=== PATIENT | male | born 1955 | race Caucasian/White ===

== ENCOUNTER 2023-11-13 06:08 | Outpatient (RCR) | payer MEDICARE, OTHER, SELFPAY | END 2023-11-13 23:59 | disposition home or self-care (01) | LOC: RPT 06:08 | PROVIDERS: ATTENDING PHYSICIAN Physical Medicine & Rehabilitation Sports Medicine; FAMILY PHYSICIAN Family Medicine | DX: M17.0 Bilateral primary osteoarthritis of knee (principal); M25.561 Pain in right knee; M25.562 Pain in left knee; Z73.6 Limitation of activities due to disability; G62.9 Polyneuropathy, unspecified | CPT/HCPCS: 97010; 97110; 97162 ==

== ENCOUNTER → 2023-12-09 07:34 | Outpatient (REF) | payer MEDICARE, OTHER, SELFPAY | LOC: DHCBC/DCA 07:34 | PROVIDERS: ATTENDING PHYSICIAN Internal Medicine Cardiovascular Disease; FAMILY PHYSICIAN Family Medicine | DX: R07.89 Other chest pain (principal) | CPT/HCPCS: 78452; 93017; A9500; J2785 ==

== ENCOUNTER 2023-12-11 07:56 | Outpatient (RCR) | payer MEDICARE, OTHER, SELFPAY | END 2023-12-14 09:25 | disposition home or self-care (01) | LOC: RPT 07:56 | PROVIDERS: ATTENDING PHYSICIAN Physical Medicine & Rehabilitation Sports Medicine; FAMILY PHYSICIAN Family Medicine | DX: M17.9 Osteoarthritis of knee, unspecified (principal); M25.561 Pain in right knee; M25.562 Pain in left knee; Z73.6 Limitation of activities due to disability; G62.9 Polyneuropathy, unspecified; M62.81 Muscle weakness (generalized) | CPT/HCPCS: 97110; 97530 ==

== ENCOUNTER 2024-03-28 18:01 | Emergency (ER) | payer MEDICARE, OTHER, SELFPAY ==
[2024-03-28 18:03] VITALS: BP 191/89
[2024-03-28 19:40] VITALS: BP 187/80
[2024-03-28] MEDS: ADACEL 0.5 ML IM (20:41)
--- NOTE | 2024-03-28 21:04 | ED.GENMED ---
History of Present Illness
General
Chief Complaint: Skin Problem
Source: patient
Exam Limitations: none
Time Seen by Provider: 03/28/24 19:49
Nursing documentation reviewed up to this point in time: agreed with
History of Present Illness
History of Present Illness:
68-year-old male with past medical history of paroxysmal A-fib denies being on any blood thinners currently, hyperlipidemia presenting to the emergency department after being caught by the clean edge of a toilet on his right lateral calf region.
Denies any foreign bodies denies any numbness or weakness or additional concerns.
Past History
Past History
ED Past Medical History: Arrthythmia (Atrial fibrillation), HTN and Hypercholesterolemia
ED Past Surgical History: Orthopedic
Social History
Tobacco: Non-smoker
Alcohol: Occasional
Personal:
Living: with family
Employment: Employed (Self-employed)
Family History
Family History: Other (Noncontributory)
Review of Systems
Review of Systems
Allergies reviewed?: Yes
All Other Systems: ROS reviewed and negative except as documented in HPI and ROS
Phy Exam
Physical Exam
Physical Exam:
GENERAL: Alert , in no apparent distress
EYE: pupils equal and reactive
NECK: Supple, no significant adenopathy.
ENT: o/p clr, mmm.
CARDIAC: Regular rate and rhythm .
LUNGS: Clear breath sounds bilaterally, no acute respiratory distress, no wheezes/rales/rhonchi
ABDOMEN: Soft, without focal tenderness, no r/g, no cvat
NEUROLOGICAL: Alert and oriented, no focal neuro deficits
SKIN: 5 cm laceration subcutaneous in depth to the right lateral mid calf region no foreign body seen warm and dry, skin intact.
MUSCULOSKELETAL: No edema, well perfused.
PSYCH: Normal and appropriate interaction.
Course
Orders/Labs/Results
Orders:
Orders
03/28/24 20:40
Tetanus/Diphth/Acelpertussis [Adacel] 0.5 ml .ROUTE .STK-MED ONE
03/28/24 20:41
Tetanus/Diphth/Acelpertussis [Adacel] 0.5 ml IM .ONCE ONE
Vital Signs
Initial and Last Documented VS:
Initial Vital Signs
Temp Pulse Resp BP Pulse Ox
98.3 F 89 18 191/89 96
03/28/24 18:03 03/28/24 18:03 03/28/24 18:03 03/28/24 18:03 03/28/24 18:03
Last Documented Vital Signs
Temp Pulse Resp BP Pulse Ox
98.3 F 85 18 187/80 98
03/28/24 18:03 03/28/24 19:40 03/28/24 19:40 03/28/24 19:40 03/28/24 19:40
Procedures
Laceration Closure
Right Middle Lateral Calf:
Status of Wound: clean
Size of Wound in cm: 5
Description of Wound Edges: sharp
Preparation: cleaned with saline
Anesthesia: 1% Lidocaine with epi
Revision/Debridement: routine- no revision and irrigate-direct pressure
Wound exploration: explored to base- no FB and no tendon involvement
Type of Closure: single layer closure
Skin Closure Material: 3-0 nylon
Number of sutures: 6
MDM/Problems Addressed
MDM/Problems Addressed:
68-year-old male presenting to the emergency department today with concerns of right-sided calf laceration occurring from a toilet prior to arrival. He claims that the toe was very clean it was not the use portion of the toilet it was a portion
that is otherwise clean and not near any feces or bodily fluids. Denies any numbness weakness or additional concerns this was subcutaneous in depth. This was closed with 6 stitches tolerated well. Advised for removal in 12 to 14 days. Blood
pressure was also elevated he was advised to follow-up for this as well. No symptoms of hypertensive emergency.
*Critical Care Note
Total Time (30-74mins, 75-104mins- exclusive of procedures): Not Applicable
ED Attending Note
-
Portions of this chart may have been created with voice recognition software.� Occasional wrong word or��sound alike� substitutions may have occurred due to the inherent limitations of voice recognition software.
Discharge Plan
Departure
Patient Disposition: Home (Routine Discharge)
Date of Disposition: 03/28/24
Time of Disposition: 21:07
Patient with high blood pressure during this ER visit?: Yes
Condition: Good
Covid-19: Not Applicable
Discharge Problem:
Laceration of leg
Instructions: Laceration Repair With Stitches ED, BLOOD PRESSURE
Prescriptions:
No Action
metoprolol succinate 50 mg Tablet Extended Release 24 Hr
50 mg PO HS
simvastatin 10 mg Tablet
10 mg PO HS
Eliquis 5 mg Tablet
5 mg PO BID
Referrals:
UNKNOWN - PT DOES,NOT KNOW [Family Provider] -
Activity Restrictions/Additional Instructions:
You came to the emergency department today with concerns of a laceration to your leg. This was cleaned thoroughly and closed with 6 stitches. Please have these removed in 12 to 14 days. In the meantime please keep the area clean and covered. You
did have an elevated blood pressure here. Please follow-up closely for reassessment of your blood pressure in the next week or 2. Return for any worsening, new or concerning symptoms.
Interventions
Interventions:
*Risk Screen - Suicide Last Done: 03/28/24 18:03
*General Assessment Last Done: 03/28/24 18:03
*Neglect/Abuse Screening Last Done: 03/28/24 18:03
ED-Skin Assessment Last Done: 03/28/24 19:39
Discharge Date and Time
Print Language: AUSTRAL[place]
[2024-03-28 21:15] VITALS: BP 167/75
== END 2024-03-28 21:16 | disposition home or self-care (01) ==
LOC: EMR 18:01
PROVIDERS: EMERGENCY PHYSICIAN Emergency Medicine
DX: S81.811A Laceration without foreign body, right lower leg, initial encounter (principal); W22.8XXA Striking against or struck by other objects, initial encounter; Z23 Encounter for immunization; I48.0 Paroxysmal atrial fibrillation; E78.00 Pure hypercholesterolemia, unspecified; I10 Essential (primary) hypertension
CPT/HCPCS: 99282; 12002; 90471; 90715

== ENCOUNTER 2024-06-19 09:31 | Emergency (ER) | payer MEDICARE, OTHER, SELFPAY ==
[2024-06-19 09:51] VITALS: BP 180/88
[2024-06-19 10:22] LABS: % Basophils 0.7 % (0-2); % Eosinophils 0.7 % (0-6); % Immature Granulocytes 0.4 % (0-0.5); % Lymphocytes 12.8 % (20.5-51.1); % Monocytes 13.9 % (1.7-9.3); % Neutrophils 71.5 % (42.2-75.2); Absolute Basophils 0.1 10^3/uL (0-0.2); Absolute Eosinophils 0.1 10^3/uL (0-0.7); Absolute Lymphocytes 1.3 10^3/uL (1.2-3.4); Absolute Monocytes 1.4 10^3/uL (0.1-0.6); Hematocrit 47.5 % (39.0-52.0); Hemoglobin 16.6 g/dL (13.0-18.0); Mean Corp Hgb Conc. 34.9 g/dL (33.0-37.0); Mean Corpuscular Hgb 30.2 pg (27.0-31.0); Mean Corpuscular Volume 86.4 fL (80.0-94.0); Mean Platelet Volume 11.3 fL (7.4-10.4); Nucleated Red Blood Cells % 0 % (-); Platelet Count 180 10^3/uL (130-400); Red Cell Dist. Width 12.4 % (11.5-14.5); White Blood Cell Count 9.8 10^3/uL (4.8-10.8)
[2024-06-19 10:24] LABS: Lactic Acid 1.6 mmol/L (0.7-2.0)
[2024-06-19 10:25] LABS: ALT (SGPT) 22 U/L (0-50); AST (SGOT) 23 U/L (17-59); Albumin 4.4 g/dl (3.5-5.0); Alkaline Phosphatase 83 U/L (38-126); Blood Urea Nitrogen 17 mg/dl (9-20); Calcium 9.4 mg/dl (8.4-10.2); Carbon Dioxide 26 mmol/L (22-30); Chloride 104 mmol/L (98-107); Glucose 113 mg/dl (70-99); Potassium 4.3 mmol/L (3.5-5.1); Sodium 140 mmol/L (135-145); Total Bilirubin 1.7 mg/dl (0.2-1.3); Total Protein 7.2 g/dl (6.3-8.2); eGFR > 60.00
[2024-06-19 11:52] LABS: Erythrocyte Sed Rate 9 mm/hour (0-20)
--- NOTE | 2024-06-19 12:08 | ED.MUSCINJ ---
HPI-Injury
<ERAN Luna Last Filed: 06/19/24 15:22>
General
Chief Complaint: Musculo-Skeletal Complaint
Source: patient
Exam Limitations: none
Time Seen by Provider: 06/19/24 11:01
History of Present Illness-Injury
Initial Injury comments:
68-year-old male not anticoagulated presents with 3 to 4 days worth of worsening pain and swelling to the right knee. No recent injury. He denies a fever. He has a remote history of Lyme disease and he has a remote history of surgery to the right
knee. The surgery was done in the 70s for torn ligament and meniscus. He has been dealing with occasional discomfort to the knee. No fevers or chills. No rashes or tick bites. No other complaints
Past History
<ERAN Luna Last Filed: 06/19/24 15:22>
Past History
ED Past Medical History: Arrthythmia (Atrial fibrillation), HTN and Hypercholesterolemia
ED Past Surgical History: Orthopedic
Social History
Tobacco: Non-smoker
Alcohol: Occasional
Personal:
Living: with family
Employment: Employed (Self-employed)
Family History
Family History: Other (Noncontributory)
Phy Exam
<ERAN Luna Last Filed: 06/19/24 15:22>
Physical Exam
Physical Exam:
General: Well-appearing male no acute respiratory distress
HEENT: Normocephalic
Musculoskeletal exam: Right knee warm to the touch slightly erythematous range of motion is limited from near full extension to about 20 degrees of flexion. He is tender diffusely about the knee multiple healed surgical incisions over the knee
there is an effusion. He is able to straight leg raise
Sepsis
<ERAN Luna Last Filed: 06/19/24 15:22>
Sepsis Screening
Sepsis Assessment: Sepsis Ruled Out
Sepsis Screen
Sepsis Screen: Sepsis Ruled Out
Date: 06/19/24
Time: 15:22
<Mariella Israel MD - Last Filed: 06/19/24 16:58>
Sepsis Screen
Sepsis Screen: Sepsis Ruled Out
Date: 06/19/24
Time: 16:54
Injury Course
<Genaro Banks PA-C - Last Filed: 06/19/24 15:22>
Orders/Labs/Results
Orders:
Orders
06/19/24 09:55
Knee, Right 4 or More Views [CR Knee- Right 4 Or More View*] Urgent
Comment:
Reason For Exam: pain and swelling
06/19/24 10:04
C-Reactive Protein Urgent
Comment: ADD ON
Complete Blood Count/With Diff Urgent
Comprehensive Metabolic Panel Urgent
Erythrocyte Sed Rate Urgent
Comment: ADD ON
Lactic Acid Urgent
Lyme Progressive Urgent
Comment: ADD ON
Blood Culture Urgent
NEGRO Source: Blood/Venous
Specimen Description:
06/19/24 11:17
Add On- LAB Urgent
Comments:: blood in lab
Tests Added?: esr, crp, lyme progressive
06/19/24 13:15
Body Fluid Cell Count Urgent
What is the Body Fluid: joint
Date Specimen was Collected: 06/19/24
Time Specimen was Collected: 13:18
Comment: with DIFF
Body Fluid Crystals Urgent
What is the Body Fluid: joint
Date Specimen was Collected: 06/19/24
Time Specimen was Collected: 13:18
Fluid Culture with Gram Stain Urgent
NEGRO Source: Joint Fluid
Specimen Description:
Date Specimen was Collected: 06/19/24
Time Specimen was Collected: 13:18
06/19/24 15:16
CeFAZolin 2 GRAM [Ancef] 2 grams in 10 ml IV NOW
Abnormal Lab Results
06/19/24
10:04
MPV 11.3 H fL
(7.4-10.4)
Absolute Neuts (auto) 7.0 H 10^3/uL
(1.4-6.5)
Absolute Monos (auto) 1.4 H 10^3/uL
(0.1-0.6)
Lymphocytes % 12.8 L %
(20.5-51.1)
Monocytes % 13.9 H %
(1.7-9.3)
Glucose 113 H mg/dl
(70-99)
Total Bilirubin 1.7 H mg/dl
(0.2-1.3)
C-Reactive Protein 68.00 H mg/L
(0.0-10.00)
06/19/24 10:04
06/19/24 10:04
<Mariella Israel MD - Last Filed: 06/19/24 16:58>
Orders/Labs/Results
Orders:
Orders
06/19/24 09:55
Knee, Right 4 or More Views [CR Knee- Right 4 Or More View*] Urgent
Comment:
Reason For Exam: pain and swelling
06/19/24 10:04
C-Reactive Protein Urgent
Comment: ADD ON
Complete Blood Count/With Diff Urgent
Comprehensive Metabolic Panel Urgent
Erythrocyte Sed Rate Urgent
Comment: ADD ON
Lactic Acid Urgent
Lyme Progressive Urgent
Comment: ADD ON
Blood Culture Urgent
NEGRO Source: Blood/Venous
Specimen Description:
06/19/24 11:17
Add On- LAB Urgent
Comments:: blood in lab
Tests Added?: esr, crp, lyme progressive
06/19/24 13:15
Body Fluid Cell Count Urgent
What is the Body Fluid: joint
Date Specimen was Collected: 06/19/24
Time Specimen was Collected: 13:18
Comment: with DIFF
Body Fluid Crystals Urgent
What is the Body Fluid: joint
Date Specimen was Collected: 06/19/24
Time Specimen was Collected: 13:18
Fluid Culture with Gram Stain Urgent
NEGRO Source: Joint Fluid
Specimen Description:
Date Specimen was Collected: 06/19/24
Time Specimen was Collected: 13:18
06/19/24 15:16
CeFAZolin 2 GRAM [Ancef] 2 grams in 10 ml IV NOW
Abnormal Lab Results
06/19/24
10:04
MPV 11.3 H fL
(7.4-10.4)
Absolute Neuts (auto) 7.0 H 10^3/uL
(1.4-6.5)
Absolute Monos (auto) 1.4 H 10^3/uL
(0.1-0.6)
Lymphocytes % 12.8 L %
(20.5-51.1)
Monocytes % 13.9 H %
(1.7-9.3)
Glucose 113 H mg/dl
(70-99)
Total Bilirubin 1.7 H mg/dl
(0.2-1.3)
C-Reactive Protein 68.00 H mg/L
(0.0-10.00)
06/19/24 10:04
06/19/24 10:04
Silvestrelt;Genaro Banks PA-C - Last Filed: 06/19/24 15:22>
MDM/Problems Addressed
Differential Diagnosis Includes:
Right knee pain with effusion. Temperature at triage was 100.5 serum white count is normal. Differential could include DJD versus gout versus septic arthritis.
Sed rate and CRP are pending. I attempted to aspirate the right knee twice under sterile conditions. Unfortunately no fluid was obtained. Orthopedics made aware. They will try to aspirate as well. X-rays of the right knee were obtained which
demonstrate degenerative disease and effusion
<Genaro Banks PA-C - Last Filed: 06/19/24 15:22>
*Critical Care Note
Total Time (30-74mins, 75-104mins- exclusive of procedures): Not Applicable
<Genaro Banks PA-C - Last Filed: 06/19/24 15:22>
Update Note
Update Note:
Ortho saw and aspirated knee and received large amount of cloudy/purulent fluid. Fluid analysis pending with cultures. Ancef given for possible septic arthritis. Will admit
<Mariella Israel MD - Last Filed: 06/19/24 16:58>
Update Note
Update Note:
Ortho saw and aspirated knee and received large amount of cloudy/purulent fluid. Fluid analysis pending with cultures. Ancef given for possible septic arthritis. Will admit
4:57 PM update Case discussed with Dr. LASHAE ARIAS who in turn spoke with Dr. Alba. Since admission to admit, further information reported including unimpressive fluid examination that would not make 1 suspicious for septic arthritis as well as
crystals seen consistent with pseudogout. Gram stain is pending. Orthopedics strongly suspects pseudogout as only etiology of patient's symptoms, does not recommend admission for rule out septic arthritis, recommends Medrol Dosepak and follow-up
in 2 to 3 days.
ED Attending Note
<Genaro Banks PA-C - Last Filed: 06/19/24 15:22>
-
Portions of this chart may have been created with voice recognition software.� Occasional wrong word or��sound alike� substitutions may have occurred due to the inherent limitations of voice recognition software.
Discharge Plan
Departure
Patient Disposition: Home (Routine Discharge)
Date of Disposition: 06/19/24
Time of Disposition: 15:22
Admit to: Med/Surg
Patient with high blood pressure during this ER visit?: Yes
Discharge Problem:
Pseudogout
Instructions: Calcium pyrophosphate deposition disease, BLOOD PRESSURE
Prescriptions:
New
methylprednisolone [Medrol (Beltran)] 4 mg tablets,dose pack
4 mg PO DAILY Qty: 21 0RF
Rx Instructions:
4 mg orally; as per dose pack recommendations
No Action
metoprolol succinate 50 mg Tablet Extended Release 24 Hr
50 mg PO HS
cyanocobalamin (vitamin B-12) 1,000 mcg Tablet
1,000 mcg PO QPM
aspirin 81 mg Tablet,Delayed Release (Dr/Ec)
81 mg PO QPM
lisinopril 10 mg Tablet
10 mg PO HS
Referrals:
Melva Alba I., DO [Active] - Follow up in 2-3 days
Vincent Pérez, DO [Family Provider] -
Activity Restrictions/Additional Instructions:
IF YOU DEVELOP INCREASING NEW OR PERSISTENT PAIN, PERSISTENT FEVER, RECURRENT OR NEW SWELLING, DRAINAGE, CHILLS, SWEATS, GET WORSE, DO NOT GET BETTER, OR OTHER WORRISOME SIGNS, PLEASE RETURN TO THE ER IMMEDIATELY.
Interventions
Interventions:
*Risk Screen - Suicide Last Done: 06/19/24 09:51
*General Assessment Last Done: 06/19/24 09:51
*Neglect/Abuse Screening Last Done: 06/19/24 09:51
ED-Musculoskeletal Assessment Last Done: 06/19/24 11:05
Discharge Date and Time
Print Language: BELIZEAN
--- NOTE | 2024-06-19 13:29 | W.PN.UPDATE ---
Update Note
Progress Note Update
Full orthopedic consult dictated:
Dx: Right knee osteoarthritis with effusion
Plan: After meticulous sterile preparation right knee was aspirated today for 50 mL cloudy yellow joint fluid. Joint fluid will be sent to lab for analysis. They are going to check for cell count, Gram stain, crystal analysis along with cultures
and sensitivities. Treatment for now can be ice and conservative treatment modalities. He will be admitted to hospitalist service. It is okay to start empiric antibiotics for now. Consider infectious disease consult. Orthopedics to follow along.
[2024-06-19 14:01] LABS: Body Fluid Mononuclear 12.8 %; Body Fluid Polymorphonuclear 87.2 %; Body Fluid WBC 9389 /CUMM
[2024-06-19 14:16] LABS: Body Fluid Second Tech CMB
[2024-06-19 14:20] VITALS: BP 149/79; BMI 32.5
[2024-06-19] MEDS: ANCEF 10 IV (15:55)
[2024-06-20 15:06] LABS: Lyme Antibody Screen, EIA Negative (Negative)
== END 2024-06-19 17:05 | disposition home or self-care (01) ==
LOC: EMR 09:31
PROVIDERS: Physician Assistant; EMERGENCY PHYSICIAN Emergency Medicine; FAMILY PHYSICIAN Family Medicine
DX: M11.261 Other chondrocalcinosis, right knee (principal); I10 Essential (primary) hypertension; E78.00 Pure hypercholesterolemia, unspecified; I48.91 Unspecified atrial fibrillation
CPT/HCPCS: 99284; 96374; 73564; 80053; 83605; 85025; 85652; 86140; 86618; 87015; 87040; 87070; 87205; 89051; 89060

== ENCOUNTER → 2024-07-07 08:39 | Outpatient (REF) | payer MEDICARE, OTHER, SELFPAY | LOC: RAD 08:39 | PROVIDERS: ATTENDING PHYSICIAN Nurse Practitioner; FAMILY PHYSICIAN Family Medicine | DX: I48.0 Paroxysmal atrial fibrillation (principal) | CPT/HCPCS: 75571 ==